=== PATIENT | female | born 1960 | race Caucasian/White ===

== ENCOUNTER 2016-10-23 06:53 | Emergency (ER) | payer OTHER ==
[~2016-10-23] VITALS: Ht 162.6 cm; Wt 62.8 kg
[~2016-10-23 06:53] MED LIST: HYDR-3533 PO; NAPR500 PO
[2016-10-23 07:03] VITALS: BP 142/99; PULSE 82; RESP 16; TEMP 98.9; O2SAT 98
--- NOTE | 2016-10-23 07:26 | PD ---
HPI Chief Complaint: Fall Time Seen by Provider: 07:08 Travel History International Travel<30 days: No Contact w/Intl Traveler<30days: No Traveled to known affect area: No History of Present Illness HPI 56 years old female complains of left-sided chest wall pain and left-sided wrist pain left wrist pain. Patient states that she fell 2 days ago. Patient states that she hit the left side of face, left chest wall and left wrist during the fall. Patient denies loss of consciousness. Patient denies any headache or neck pain. Patient states that she had pain in the left side of face after the fall however no facial pain today. Patient complaint of severe left-sided chest wall pain on left upper chest near the axilla area. Patient denies any pain radiation. Patient states that the pain is worse with deep breathing and movement. Patient complains of mild aching pain in the left wrist. Patient denies abdominal pain. Patient denies any back pain. Patient denies any other extremity injury. On a scale of 1-10 the pain is a 10. PFSH Past Medical History Anxiety: Yes Diminished Hearing: No Musculoskeletal: Yes (Left foot fx) Immunizations Current: Yes ?: Not Menopausal: Yes : 2 Para: 2 Past Surgical History Section: Yes (X's 2) Social History Alcohol Use: No Tobacco Use: No Substance Use: No Allergies-Medications (Allergen,Severity, Reaction): Coded Allergies: No Known Allergies (Verified , 10/23/16) Reported Meds & Prescriptions Reported Meds & Active Scripts Active No Active Prescriptions or Reported Medications Review of Systems General / Constitutional: No: Fever Eyes: No: Visual changes HENT: No: Headaches Cardiovascular: Positive: Chest Pain or Discomfort Respiratory: No: Shortness of Breath Gastrointestinal: No: Abdominal Pain Genitourinary: No: Dysuria Musculoskeletal: Positive: Pain Skin: No Rash Neurologic: No: Weakness Psychiatric: No: Depression Endocrine: No: Polydipsia Hematologic/Lymphatic: No: Easy Bruising Physical Exam Narrative GENERAL: Well-nourished, well-developed patient. SKIN: Warm and dry. HEAD: Normocephalic. Patient has ecchymosis swelling with mild tenderness on the left maxilla area and periorbital area. EYES: No scleral icterus. No injection or drainage. Pupils 2 mm equal reactive. NECK: Supple, trachea midline. No JVD or lymphadenopathy. CARDIOVASCULAR: Regular rate and rhythm without murmurs, gallops, or rubs. RESPIRATORY: Breath sounds equal bilaterally. No accessory muscle use. GASTROINTESTINAL: Abdomen soft, non-tender, nondistended. MUSCULOSKELETAL: No cyanosis, or edema. Patient has mild diffuse tenderness over left wrist area. Patient has moderate to severe tenderness and palpation left chest wall area around the left axilla area. No crepitus or deformity noted. BACK: Nontender without obvious deformity. No CVA tenderness. Neurologic exam normal. Data Data Last Documented VS Vital Signs Date Time Temp Pulse Resp B/P Pulse Ox O2 Delivery O2 Flow Rate FiO2 10/23/16 07:16 82 16 98 Room Air 10/23/16 07:03 98.9 142/[address] Facial Bones W/O Iv Cont (10/23/16 07:15) Wrist, Complete ([id number]) (10/23/16 07:15) Ribs, Uni (W/Exp Cxr-Min 3vw) (10/23/16 07:15) MDM Medical Decision Making Medical Screen Exam Complete: Yes Emergency Medical Condition: Yes Interpretation(s) Last Impressions Wrist X-Ray 10/23/16714 Signed Impressions: Service Date/Time: Sunday, October 23, 2016 07:35 - CONCLUSION: Soft tissue without fracture.. Tawanda Villareal MD Ribs X-Ray 10/23/16714 Signed Impressions: Service Date/Time: Sunday, October 23, 2016 07:22 - CONCLUSION: No acute disease. Chronic elevation right hemidiaphragm. Remote left fourth rib fracture. No acute rib fracture seen. Tawanda Villareal MD Maxillofacial CT 10/23/16714 Signed Impressions: Service Date/Time: Sunday, October 23, 2016 07:41 - CONCLUSION: 1. Left facial soft tissue swelling. 2. No facial fracture. Tawanda Villareal MD Differential Diagnosis Differential diagnosis including contusion, fracture, hemopneumothorax. Narrative Course 56 years old female with left facial injury, left chest wall injury, left wrist injury. Status post fall. Diagnosis Primary Impression: Multiple contusions Patient Instructions: General Instructions Med/Other Pt SpecificInfo: Prescription(s) given Scripts Hydrocodone-Acetaminophen ([place])5-325 mg Tab1 Tab PO Q6H PRN (PAIN) #20 TAB Prov:Papa Blake MD 10/23/16 Methocarbamol (Robaxin)750 Mg Ixn438 Mg PO QID #40 TAB Prov:Papa Blake MD 10/23/16 Meloxicam (Mobic)15 Mg Tab15 Mg PO DAILY #20 TAB Prov:Papa Blake MD 10/23/16 Disposition: 01 DISCHARGE HOME Condition: Stable Papa Blake MD Oct 23, 2016 07:25
--- NOTE | 2016-10-23 07:59 | RADHPO ---
EXAM DATE/TIME: 10/23/2016 07:22 [facility] COMPARISON: CT ABDOMEN & PELVIS W CONTRAST, October 26, 2013, 5:52. INDICATIONS : Left side chest wall pain from fall MEDICAL HISTORY : None. SURGICAL HISTORY : None. ENCOUNTER: Initial ACUITY: 3 days PAIN SCORE: 10/10 LOCATION: Left Ribs FINDINGS: Multiple views of the left ribs were performed. There is no evidence of displaced fracture. No dest ructive lesions or areas of periosteal thickening are seen. Old left fourth rib fracture. Elevation r ight hemidiaphragm. Expiratory view of the chest is negative for pneumothorax. The mediastinal struc tures are midline. CONCLUSION: No acute disease. Chronic elevation right hemidiaphragm. Remote left fourth rib fracture. No acute ri b fracture seen. Tawanda Villareal MD on October 23, 2016 at 7:55 Board Certified Radiologist. This report was verified electronically.
--- NOTE | 2016-10-23 08:00 | RADHPO ---
EXAM DATE/TIME: 10/23/2016 07:35 [facility] COMPARISON: No previous studies available for comparison. INDICATIONS : Fall, left wrist pain MEDICAL HISTORY : None. SURGICAL HISTORY : None. ENCOUNTER: Initial ACUITY: 3 days PAIN SCORE: 7/10 LOCATION: Left wrist FINDINGS: Three view examination of the left wrist demonstrates soft tissue swelling without dislocation, or fr acture. The carpal bones are in normal alignment. The joint spaces are maintained. Bony mineraliza tion is normal. CONCLUSION: Soft tissue without fracture.. Tawanda Villareal MD on October 23, 2016 at 7:58 Board Certified Radiologist. This report was verified electronically.
--- NOTE | 2016-10-23 08:13 | RADHPO ---
EXAM DATE/TIME: 10/23/2016 07:41 [facility] COMPARISON: No previous studies available for comparison. INDICATIONS : Trip and fall three days ago; left side facial pain and bruising. RADIATION DOSE: 29.88 CTDIvol (mGy) MEDICAL HISTORY : Anxiety. SURGICAL HISTORY : None. ENCOUNTER: Initial ACUITY: 3 days PAIN SCORE: 7/10 LOCATION: Left facial TECHNIQUE: Volumetric scanning of the facial bones was performed. Using automated exposure control and adjustme nt of the mA and/or kV according to patient size, radiation dose was kept as low as reasonably achiev able to obtain optimal diagnostic quality images. FINDINGS: ORBITS: The orbital and infraorbital osseous structures are intact. The retroconal structures have a normal configuration. No radiopaque foreign bodies are seen. NASAL BONE: The nasal bone and maxillary spine are intact ZYGOMATIC ARCHES: Symmetric without evidence of fracture. SINUSES: The maxillary, ethmoid and frontal sinuses are intact. No air-fluid levels seen. NASAL CAVITY: The nasal septum is intact and midline. The lacrimal ducts are intact. SOFT TISSUES: No radiopaque foreign bodies seen. Left facial soft-tissue swelling is seen. INTRACRANIAL: No intracranial air seen. CRIBIFORM PLATE: Grossly intact. CONCLUSION: 1. Left facial soft tissue swelling. 2. No facial fracture. Tawanda Villareal MD on October 23, 2016 at 8:08 Board Certified Radiologist. This report was verified electronically.
[2016-10-23] MEDS ORDERED: MOBI15TA PO (08:49)
[2016-10-23] MEDS ORDERED: ROBA750T PO (08:49)
[2016-10-23] MEDS ORDERED: NORC5TAB PO (08:49)
[2016-10-23] MEDS ORDERED: ACETAMINOPHEN/HYDROcodone 325 MG/5 MG TAB PO ONE (09:00)
== END 2016-10-23 09:37 | disposition home or self-care (01) ==
LOC: PHED 06:53
DX: S20.212A Contusion of left front wall of thorax, initial encounter (principal); S60.212A Contusion of left wrist, initial encounter; S00.83XA Contusion of other part of head, initial encounter; S00.12XA Contusion of left eyelid and periocular area, initial encounter; Z87.39 Personal history of other diseases of the musculoskeletal system and connective tissue; Z86.59 Personal history of other mental and behavioral disorders; W19.XXXA Unspecified fall, initial encounter
CPT/HCPCS: 70486; 71101; 73110

== ENCOUNTER 2016-12-22 11:52 | Emergency (ER) | payer OTHER ==
[~2016-12-22] VITALS: Ht 162.6 cm; Wt 58.7 kg
[~2016-12-22 11:52] MED LIST changes: -HYDR-3533 PO; +MOBI15TA PO; -NAPR500 PO; +NORC5TAB PO; +ROBA750T PO
[2016-12-22 11:55] VITALS: BP 112/78; PULSE 67; RESP 18; TEMP 98; O2SAT 100
--- NOTE | 2016-12-22 12:25 | PD ---
HPI Chief Complaint: GI Complaint Time Seen by Provider: 12:10 Travel History International Travel<30 days: No Contact w/Intl Traveler<30days: No Traveled to known affect area: No History of Present Illness HPI 56-year-old female came to the emergency room with history of vomiting for past 2-3 days. Patient says she has not vomited any today but feels very dehydrated and that's why decided to come in mainly with the hope that she would get some IV fluid. No history of abdominal pain or diarrhea. She describes the color of her vomitus to be clear. No known sick contacts. Vital signs were otherwise stable. She is otherwise a relatively healthy person. She had some ice tea today which she has kept down so far she said. [facility] Past Medical History Narrative Medical List of her past medical, surgical, social and family history was reviewed from the nursing note. Anxiety: Yes Diminished Hearing: No Musculoskeletal: Yes (Left foot fx) Immunizations Current: Yes Tetanus Vaccination: Unknown ?: Unknown Menopausal: Yes : 2 Para: 2 Past Surgical History Section: Yes (X's 2) Social History Alcohol Use: Yes (socially) Tobacco Use: No Substance Use: No Allergies-Medications (Allergen,Severity, Reaction): Coded Allergies: No Known Allergies (Verified , 12/22/16) Comments No known drug allergies. Reported Meds & Prescriptions Reported Meds & Active Scripts Active Omeprazole 40 Mg Cap 40 Mg PO DAILY Zofran Odt (Ondansetron Odt) 4 Mg Tab 4 Mg SL Q6HR PRN Macrobid (Nitrofurantoin Monoh/Nitrofur Macro) 100 Mg Cap 100 Mg PO BID 10 Days Narrative Medication List of her home medications reviewed from the nursing note. Review of Systems Except as stated in HPI: all other systems reviewed are Neg Physical Exam Narrative GENERAL: Awake, alert, moderate distress SKIN: Focused skin assessment warm/dry. HEAD: Atraumatic. Normocephalic. EYES: Pupils equal and round. No scleral icterus. No injection or drainage. ENT: No nasal bleeding or discharge. Dry mucous membrane and coated tongue NECK: Trachea midline. No JVD. CARDIOVASCULAR: Regular rate and rhythm. No murmur appreciated. RESPIRATORY: No accessory muscle use. Clear to auscultation. Breath sounds equal bilaterally. GASTROINTESTINAL: Abdomen soft, non-tender, nondistended. Hepatic and splenic margins not palpable. MUSCULOSKELETAL: No obvious deformities. No clubbing. No cyanosis. No edema. NEUROLOGICAL: Awake and alert. No obvious cranial nerve deficits. Motor grossly within normal limits. Normal speech. PSYCHIATRIC: Appropriate mood and affect; insight and judgment normal. Data Data Last Documented VS Vital Signs Date Time Temp Pulse Resp B/P Pulse Ox O2 Delivery O2 Flow Rate FiO2 12/22/16 15:00 63 16 99 12/22/16 13:36 141/75 Room Air 12/22/16 11:55 98.0 Orders Piperacil-Tazo 4.5 Gm Premix (Zosyn 4.5 (12/22/16 12:30) Vancomycin Inj (Vancomycin Inj) (12/22/16 12:30) Ceftriaxone Inj (Rocephin Inj) (12/22/16 12:30) Sodium Chlorid 0.9% 500 Ml Inj (Ns 500 M (12/22/16 12:30) Complete Blood Count With Diff (12/22/16 12:28) Comprehensive Metabolic Panel (12/22/16 12:28) Lipase (12/22/16 12:28) Urinalysis - C+S If Indicated (12/22/16 12:28) Iv Access Insert/Monitor (12/22/16 12:28) Ecg Monitoring (12/22/16 12:28) Oximetry (12/22/16 12:28) Ondansetron Inj (Zofran Inj) (12/22/16 12:30) Sodium Chlor 0.9% 1000 Ml Inj (Ns 1000 M (12/22/16 12:28) Sodium Chloride 0.9% Flush (Ns Flush) (12/22/16 12:30) Urine Culture (12/22/16 12:30) Ceftriaxone Inj (Rocephin Inj) (12/22/16 13:15) Blood Culture (12/22/16 13:02) Sodium Chlor 0.9% 1000 Ml Inj (Ns 1000 M (12/22/16 13:15) Ct Abd/Pel W/O Iv Contrast (12/22/16 ) Potassium Chloride Eff (K-Lyte Cl Eff) (12/22/16 13:30) Pantoprazole Inj (Protonix Inj) (12/22/16 14:15) Labs Laboratory Tests Test 12/22/16 12:30 Sodium Level 136 MEQ/L Potassium Level 3.2 MEQ/L Chloride Level 97 MEQ/L Carbon Dioxide Level 29.5 MEQ/L Anion Gap 10 MEQ/L Blood Urea Nitrogen 13 MG/DL Creatinine 0.75 MG/DL Estimat Glomerular Filtration 80 ML/MIN Rate Random Glucose 98 MG/DL Calcium Level 9.5 MG/DL Total Bilirubin 1.0 MG/DL Aspartate Amino Transf 36 U/L (AST/SGOT) Alanine Aminotransferase 48 U/L (ALT/SGPT) Alkaline Phosphatase 106 U/L Total Protein 8.3 GM/DL Albumin 3.9 GM/DL Lipase 133 U/L White Blood Count 13.6 TH/MM3 Red Blood Count 4.64 MIL/MM3 Hemoglobin 14.6 GM/DL Hematocrit 42.5 % Mean Corpuscular Volume 91.6 FL Mean Corpuscular Hemoglobin 31.4 PG Mean Corpuscular Hemoglobin 34.3 % Concent Red Cell Distribution Width 11.5 % Platelet Count 400 TH/MM3 Mean Platelet Volume 7.6 FL Neutrophils (%) (Auto) 81.1 % Lymphocytes (%) (Auto) 13.8 % Monocytes (%) (Auto) 3.2 % Eosinophils (%) (Auto) 0.9 % Basophils (%) (Auto) 1.0 % Neutrophils # (Auto) 11.1 TH/MM3 Lymphocytes # (Auto) 1.9 TH/MM3 Monocytes # (Auto) 0.4 TH/MM3 Eosinophils # (Auto) 0.1 TH/MM3 Basophils # (Auto) 0.1 TH/MM3 CBC Comment DIFF FINAL Differential Comment Urine Collection Type CLEAN CATCH Urine Color YELLOW Urine Turbidity MOD Urine pH 6.0 Urine Specific [place] 1.030 Urine Protein 100 mg/dL Urine Glucose (UA) NEG mg/dL Urine Ketones 80 OR GREATER mg/dL Urine Occult Blood LARGE Urine Nitrite POS Urine Bilirubin NEG Urine Leukocyte Esterase MOD Urine RBC 50-99 /hpf Urine WBC INNUM /hpf Urine WBC Clumps MOD Urine Squamous Epithelial > 8 /hpf Cells Urine Bacteria MANY /hpf Microscopic Urinalysis Comment CULTURE INDICATED Urine Collection Time 12:30 MDM Medical Decision Making Medical Screen Exam Complete: Yes Emergency Medical Condition: Yes Medical Record Reviewed: Yes Differential Diagnosis Small bowel obstruction, acute gastritis, acute pancreatitis, electrolyte abnormality Narrative Course 2:13 PM patient had some leukocytosis. Potassium is low and I have ordered replacement. She has a significant UTI based on the UA. I've ordered IV Rocephin. Given all this I have ordered a CT abdomen pelvis to make sure that she does not have any small bowel obstruction or any other acute surgical pathology attribute them to the vomiting. I have ordered 2 L of IV fluid bolus so far. After taking the by mouth potassium replacement I was told by the nurse that patient was complaining of some heartburn and chest pain. I have ordered IV Protonix. It could be from an esophagitis from recurrent vomiting. If the CAT scan is within normal limits and patient can tolerate by mouth challenge I will discharge her home on antibiotic for the UTI. 2:52 PM patient is taking by mouth challenge. I'll discharge her home. Procedures EKG Prior to Arrival: No Diagnosis Primary Impression: Vomiting Qualified Code: R11.2 - Intractable vomiting with nausea, unspecified vomiting type Additional Impressions: Dehydration Acute gastritis Qualified Code: K29.00 - Acute gastritis without hemorrhage, unspecified gastritis type UTI (urinary tract infection) Qualified Code: N39.0 - Urinary tract infection without hematuria, site unspecified Referrals: Primary Care Physician 3 days Additional Instructions: Please return to the ER if the condition worsens or any other new concerns. The medications as per the prescription direction. Follow-up with your primary care in couple days. Do not eat food that's acidic in nature like lemon,limes, oranges, tomatoes, strawberries etc. Med/Other Pt SpecificInfo: Prescription(s) given Scripts Omeprazole 40 Mg Cap40 Mg PO DAILY #14 CAP Ref 0 Prov:Marly Ambriz MD 12/22/16 Ondansetron Odt (Zofran Odt)4 Mg Tab4 Mg SL Q6HR PRN (Nausea/Vomiting) #12 TAB Ref 0 Prov:Marly Ambriz MD 12/22/16 Nitrofurantoin Monohydrate Macrocrystals (Macrobid)100 Mg [id number] Mg PO BID 10 Days Ref 0 Prov:Marly Ambriz MD 12/22/16 Disposition: 01 DISCHARGE HOME Condition: Stable Marly Ambriz MD December 22, 2016 12:25
[2016-12-22] MEDS ORDERED: SODIUM CHLOR 0.9% 1000 ML INJ 1,000 ML IV SCH (12:28)
[2016-12-22] MEDS ORDERED: PIPERACIL-TAZO 4.5 GM PREMIX 100 ML IV ONE (12:30)
[2016-12-22] MEDS ORDERED: SODIUM CHLORID 0.9% 500 ML INJ 500 ML IV ONE (12:30)
[2016-12-22] MEDS ORDERED: SODIUM CHLORIDE 0.9% FLUSH 10 ML FLUSH IV FLUSH PRN (12:30)
[2016-12-22] MEDS ORDERED: ONDANSETRON HCL 4 MG/2 ML VIAL IVP ONE (12:30)
[2016-12-22] MEDS ORDERED: VANCOMYCIN INJ 1,000 MG in SODIUM CHLOR 0.9% 250 ML INJ 250 ML IV ONE (12:30)
[2016-12-22] MEDS ORDERED: cefTRIAXone INJ 2,000 MG in SODIUM CHLORIDE 0.9% INJ 100 ML IV ONE (12:30)
[2016-12-22 12:39] LABS: AUTOMATED NEUTROPHIL # 11.1 TH/MM3 (1.8-7.7); BASOPHIL # 0.1 TH/MM3 (0-0.2); BLOOD, URINE LARGE (NEG); EOSINOPHIL # 0.1 TH/MM3 (0-0.4); EOSINOPHIL % 0.9 % (0.0-4.0); GLUCOSE,URINE NEG (NEG); HEMATOCRIT 42.5 % (35.0-46.0); HEMO FLAGS DIFF FINAL; KETONE, URINE 80 OR GREATER mg/dL (NEG); LYMPH % 13.8 % (9.0-44.0); LYMPHOCYTE # 1.9 TH/MM3 (1.0-4.8); MEAN CELL VOLUME 91.6 FL (80.0-100.0); MEAN CORPUSCULAR HEMOGLOBIN 31.4 PG (27.0-34.0); MEAN CORPUSCULAR HGB CONC 34.3 % (32.0-36.0); MONO % 3.2 % (0.0-8.0); NEUT % 81.1 % (16.0-70.0); NITRITE,URINE POS (NEG); PLATELET COUNT 400 TH/MM3 (150-450); RED BLOOD COUNT 4.64 MIL/MM3 (4.00-5.30); RED CELL DISTRIBUTION WIDTH 11.5 % (11.6-17.2); WHITE BLOOD COUNT 13.6 TH/MM3 (4.0-11.0)
[2016-12-22 12:44] LABS: METHOD OF COLLECTION CLEAN CATCH; URINE COLOR YELLOW (YELLW/STRAW)
[2016-12-22 12:45] LABS: BACTERIA, URINE MANY /hpf; SQUAMOUS EPITHELIAL CELL URINE > 8 /hpf (0-5); WBC, URINE INNUM /hpf (0-5)
[2016-12-22 12:46] LABS: COMMENT (UR) CULTURE INDICATED; CULTURE IF INDICATED CULTURE INDICATED
[2016-12-22 12:50] LABS: CHLORIDE 97 MEQ/L (98-107); POTASSIUM 3.2 MEQ/L (3.5-5.1); SODIUM (NA) 136 MEQ/L (136-145)
[2016-12-22 12:54] LABS: ANION GAP 10 MEQ/L (5-15); BICARBONATE 29.5 MEQ/L (21.0-32.0); BLOOD UREA NITROGEN 13 MG/DL (7-18)
[2016-12-22 12:57] LABS: ALT (GPT) 48 U/L (10-53); AST (GOT) 36 U/L (15-37); GLOMERULAR FILTRATION RATE 80 ML/MIN (>89)
[2016-12-22 13:00] LABS: ALKALINE PHOSPHATASE 106 U/L (45-117)
[2016-12-22] MEDS ORDERED: cefTRIAXone INJ 1,000 MG in SODIUM CHLORIDE 0.9% INJ 100 ML IV ONE (13:15)
[2016-12-22] MEDS ORDERED: SODIUM CHLOR 0.9% 1000 ML INJ 1,000 ML IV ONE (13:15)
[2016-12-22] MEDS ORDERED: POTASSIUM CHLORIDE 25 MEQ EFFERVESCENT TAB NG SCH (13:30)
[2016-12-22 13:33] VITALS: RESP 16; O2SAT 100
[2016-12-22 13:36] VITALS: BP 141/75; PULSE 59; RESP 16; O2SAT 100
[2016-12-22] MEDS ORDERED: PANTOPRAZOLE SODIUM 40 MG VIAL IV PUSH ONE (14:15)
--- NOTE | 2016-12-22 14:22 | RADHPO ---
EXAM DATE/TIME: 12/22/2016 14:00 This report includes an Addendum and supersedes previous reports for this exam. [facility] COMPARISON: CT ABDOMEN & PELVIS W CONTRAST, October 26, 2013, 5:52. INDICATIONS : Vomiting. ORAL CONTRAST: No oral contrast ingested. RADIATION DOSE: 7.80 CTDIvol (mGy) MEDICAL HISTORY : Diverticulitis. SURGICAL HISTORY : section. ENCOUNTER: Initial ACUITY: 4 - 6 days PAIN SCALE: 0/10 LOCATION: Bilateral Abdomen. TECHNIQUE: Volumetric scanning of the abdomen and pelvis was performed. Using automated exposure control and ad justment of the mA and/or kV according to patient size, radiation dose was kept as low as reasonably achievable to obtain optimal diagnostic quality images. FINDINGS: LOWER LUNGS: The visualized lower lungs are clear. LIVER: Homogeneous density without lesion. There is no dilation of the biliary tree. No calcified gallston es. SPLEEN: Normal size without lesion. PANCREAS: Within normal limits. KIDNEYS: Normal in size and shape. There is no mass, stone, or hydronephrosis other than 5 mm angiomyolipoma right kidney. ADRENAL GLANDS: Within normal limits. VASCULAR: There is no aortic aneurysm. BOWEL/MESENTERY: The stomach, small bowel, and colon demonstrate no acute abnormality. There is no free intraperitone al air or fluid. ABDOMINAL WALL: Within normal limits. RETROPERITONEUM: There is no lymphadenopathy. BLADDER: No wall thickening or mass. REPRODUCTIVE: Mass right side of the uterus presumably leiomyoma similar 2013. INGUINAL: There is no lymphadenopathy or hernia. MUSCULOSKELETAL: Within normal limits for patient age. CONCLUSION: Diverticulitis without evidence of diverticulitis. Uterine leiomyoma right side. No etiology for abdo nishant pain identified. Chano Sibley MD on December 22, 2016 at 14:19 Board Certified Radiologist. This report was verified electronically. ADDENDUM: The impression should say "diverticulosis without evidence of diverticulitis". Chano Sibley MD on December 28, 2016 at 23:58 Board Certified Radiologist. This report was verified electronically.
[2016-12-22] MEDS ORDERED: ZOFR4TAB3 SL (14:54)
[2016-12-22] MEDS ORDERED: OMEP40CA2 PO (14:54)
[2016-12-22] MEDS ORDERED: MACR100C2 PO (14:54)
== END 2016-12-22 15:10 | disposition home or self-care (01) ==
LOC: PHED 11:52
DX: R11.2 Nausea with vomiting, unspecified (principal); E86.0 Dehydration; K29.00 Acute gastritis without bleeding; N39.0 Urinary tract infection, site not specified; B96.20 Unspecified Escherichia coli [E. coli] as the cause of diseases classified elsewhere; D25.9 Leiomyoma of uterus, unspecified; K57.92 Diverticulitis of intestine, part unspecified, without perforation or abscess without bleeding
CPT/HCPCS: 74176; 80053; 81001; 83690; 85025; 87040; 87077; 87086; 87186; 96361; 96365; 96375; 99284; C9113; J0696; J2405; J7030